=== PATIENT | female | born 1980 | race Two or more races ===

== ENCOUNTER → 2016-10-27 | Outpatient (CLI) | payer OTHER ==
[~2016-10-27] MED LIST: NO MEDICATIONS; PERCOCET5/325 PO
--- NOTE | ~2016-10-27 | US136 ---
[facility] A Service of [facility] & [facility] RADIOLOGY TEXT RESULTS PATIENT: ANTONETTE SWARTZ LOCATION: [facility] : [birth year] UNIT #: [id number] AGE: [address]: Radha Salazar MD SEX: F ORDER DR: [id number] [facility] [address] [place], [place] [address] [id number] O MR#: [id number] Acc #: [id number] NAME: ANTONETTE SWARTZ : 1980 SEX: F STUDY DATE/TIME: 10/27/2016 13:18 UNIT: [facility] ROOM: STUDY DESCRIPTION: US U/L Ext Art Study Ltd Bilat Attending Physician: Josh Salazar M.D. Referring Physician: Josh Salazar M.D. Ordering Physician: Josh Salazar M.D. Primary Care Physician: No Primary Care Physician MEDICAL IMAGING REPORT This report is preliminary unless electronic signature is present EXAM Bilateral ankle-brachial indices. INDICATION Pain and weakness for 2 years. Patient has right drop foot and is apparently to undergo surgery for this. TECHNIQUE Sequential pressures were obtained through both lower extremities and pulse volume recordings were generated. FINDINGS The ankle-brachial indices on the left are normal measuring 1.06 at the posterior tibial artery and 1.03 at the dorsalis pedis artery. However, the ankle-brachial index of the dorsalis pedis artery on the right is abnormal at 0.81, although it is normal in the posterior tibial artery at 1.02. The toe-brachial index on the left is normal at 0.92 and is on the lower end of normal on the right at 0.81. There is some dampening of the waveform within the pulse volume recording on the right. IMPRESSION 1. The ankle-brachial index of the right dorsalis pedis artery is abnormal at 0.81. Given that the rest of the patient's ankle-brachial indices are normal, this may be an artifactual finding, especially as the spine recording appears normal. However, the possibility of some isolated disease within the dorsalis pedis artery is certainly not excluded. CT angiography of the abdomen and pelvis with bilateral lower extremity runoff may allow for better characterization. 2. The patient's toe-brachial index on the right is diminished when compared to the contralateral side and the pulse volume recording is also diminished when compared to the contralateral side. I suspect this likely reflects some small vessel disease on the right, although [facility] A Service of [facility] & [facility] RADIOLOGY TEXT RESULTS PATIENT: ANTONETTE SWARTZ [id number] [birth year] UNIT #: [id number] AGE: [address]: Radha Salazar MD SEX: F ORDER DR: a component of inflow disease is not excluded given the abnormal RICK in the dorsalis pedis artery. Dictated by... Milagros Doan M.D. THIS IS AN ELECTRONICALLY VERIFIED REPORT Milagros Doan M.D. at 10/29/2016 12:57 PM AFF/margarita TD: 10/29/2016 09:39 JOB #: [id number] MEDICAL IMAGING REPORT Page 1 of 1 COPY
[2016-10-27 13:52] LABS: HEMATOCRIT 36.4 % (35.0-45.0); MEAN CELL VOLUME 89.7 FL (83-96); MEAN CORPUSCULAR HEMOGLOBIN 29.5 PG (28-34); MEAN CORPUSCULAR HGB CONC 32.9 g/dL (30-36); RED BLOOD COUNT 4.06 X10e (3.90-5.30); RED CELL DISTRIBUTION WIDTH 12.9 % (11.0-15.5); WHITE BLOOD COUNT 5.3 X10e3 (4.0-10.5)
[2016-10-27 14:20] LABS: BUN/CREATININE RATIO 15.71; CALCIUM SERUM 9.3 mg/dL (8.4-10.2); CREATININE SERUM 0.7 mg/dL (0.6-1.4); GLOM FILT RATE Estimated 112.3 mL/min (>60); POTASSIUM 3.9 mmol/L (3.5-5.1)
== END | disposition home or self-care (01) ==
LOC: CAMB 11:53
PROVIDERS: Orthopaedic Surgery
DX: Z01.818 Encounter for other preprocedural examination (principal); M21.6X1 Other acquired deformities of right foot; M21.371 Foot drop, right foot
CPT/HCPCS: 36415; 80048; 85027; 93922

== ENCOUNTER 2016-11-10 07:58 | Inpatient (IN) | payer OTHER ==
--- NOTE | ~2016-11-10 | DS ---
Unit #: [id number] #: [id number] Patient: ANTONETTE PEREZ [id number] [address] [place], [place] [address] [id number] I MR#: [id number] NAME: ANTONETTE PEREZ ROOM: [facility] Age: 36 Sex: F Admission Date: 11/10/2016 : 1980 Discharge Date: 11/12/2016 Attending Physician: Josh Salazar M.D. Primary Care Physician: No Primary Care Physician DISCHARGE SUMMARY CHIEF COMPLAINT Right foot deformity and pain. HISTORY OF PRESENT ILLNESS Patient is a 36-year-old female from [place], who has a right foot equinus deformity since childhood. The patient has had no treatment. She has a 45-degree equinus contracture and walks on the ball of her foot. She is, therefore, to undergo surgical correction of this unbraceable deformity. DESCRIPTION OF HOSPITAL COURSE The patient was taken to the operating room on the date of admission, where she underwent open right Achilles tendon lengthening close to her ankle capsule release, transfer of the posterior tibial tendon through the interosseous membrane to the dorsum of the mid-foot. She also underwent Santamaria' procedure and elevating first metatarsal osteotomy. She had a stable postoperative course. 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 She was seen by Physical Therapy and instructed on how to remain nonweight-bearing on her affected side. Dressing was changed on the 2nd postoperative day. She remained afebrile with stable vital signs. She was ready for discharge on the 2nd postoperative day. FINAL DIAGNOSES 1. Right ankle equinus contracture. 2. Right cavus deformity. 3. Right foot drop. DISPOSITION AND RECOMMENDATIONS The patient is discharged home, she will get the dressing clean, dry and intact. She will put it in elevation, she will not weight-bear on the extremity for 6-weeks. DISCHARGE MEDICATIONS Percocet 5/325 one or two p.o. q.4-6 hours p.r.n. pain, dispense 50. Follow-up in my office in 10-14 days for dressing change, stitch removal, and application of a cast. Dictated by.Toña Salazar M.D. [facility]/jt Unit #: [id number] #: [id number] Patient: ANTONETTE PEREZ TD: 11/12/2016 19:43 JOB #: [id number] DISCHARGE SUMMARY Page 1 of 1 X Radha Salazar MD DISCHARGE SUMMARY
--- NOTE | ~2016-11-10 | OR ---
Unit #: [id number] #: [id number] Patient: ANTONETTE SWARTZ [id number] [address] [place], [place] [address] [id number] I MR#: [id number] NAME: ANTONETTE SWARTZ ROOM: 453 Date of Procedure: 11/10/2016 Admission Date: 11/10/2016 Surgeon: Josh Salazar M.D. : 1980 Attending Physician: Josh Salazar M.D. Primary Care Physician: Primary Care Physician No OPERATIVE REPORT PREOPERATIVE DIAGNOSES 1. Severe right ankle equinus. 2. Right foot drop. 3. Right cavus foot. POSTOPERATIVE DIAGNOSES 1. Severe right ankle equinus. 2. Right foot drop. 3. Right cavus foot. PROCEDURES PERFORMED 1. Open right Achilles tendon lengthening and posterior ankle capsular release (68567). 2. Right posterior tibial tendon transfer through interosseous membrane to dorsal midfoot (08401). 3. Right flexor digitorum longus tendon transfer to navicular (30888). 4. Right Santamaria procedure with transfer of extensor hallucis longus tendon to first metatarsal neck and hallux interphalangeal joint fusion (82633). 5. Right second, third, fourth, and fifth toe flexor tenotomies (01172 x4). 6. A right first metatarsal base elevating osteotomy (91392). 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 ANESTHESIA Popliteal saphenous block and general. 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 She walks on the ball of the foot and cannot wear a normal shoe. She has not had any surgery. She does not wear a brace. She has had essentially no treatment. Due to the marked deformity of her foot, we have elected to proceed with Achilles lengthening as well as posterior tibial tendon transfer to allow some dorsiflexion in an attempt to produce a plantigrade foot. DESCRIPTION OF PROCEDURE The patient was taken to the operating room following the right popliteal saphenous block. She was placed in a supine position. General anesthetic was induced. The right leg was then identified as the correct operative Unit #: [id number] #: [id number] Patient: ANTONETTE SWARTZ extremity during the time-out procedure. The IV antibiotic protocol was followed. The right leg was then prepped and draped in the usual sterile fashion. An 8 cm medial longitudinal incision was made along the Achilles tendon. Subcutaneous tissue was divided. The Achilles paratenon was opened. The Achilles tendon was exposed with meticulous dissection. A #15 knife blade was then used to lengthen the Achilles tendon in a Z-fashion cutting the tendon in a coronal plane. The deep muscle fascia was then opened and the mechanical door repairer ankle capsule was released with tenotomy scissors to ensure that there was no restriction to ankle dorsiflexion. Ankle dorsiflexion to 0 degrees was barely achieved. The Achilles tendon was then repaired under normal tension with a running 2-0 FiberWire Krackow stitch. A medial longitudinal incision was then made over the posterior tibial tendon insertion. The posterior tibial tendon sheath was opened. The tendon was released from the navicular and tagged with 2-0 Vicryl. The previously placed Achilles incision was then utilized in its proximal extent to open the deep muscle fascia just posterior to the tibia. The posterior tibial musculotendinous junction was identified and the free end of the posterior tibial tendon was pulled into this wound. A 6 cm anterior longitudinal incision was then made over the distal tibia 8 cm proximal to the ankle joint. The deep muscle fascia was opened. The contents of the extensor compartment were retracted and the interosseous membrane was identified. The interosseous membrane was opened for a distance of 3 cm. The suture retriever was then used to pass the free end of the posterior tibial tendon from posterior to anterior through the interosseous membrane. The tendon was then passed through a vertical slit in the anterior tibial tendon from posterior to anterior. There was residual forefoot cavus with depression of the first metatarsal, therefore it was decided to proceed with a Santamaria procedure and elevating first metatarsal osteotomy. A dorsal longitudinal incision was made along the entire first metatarsal crossing the first metatarsophalangeal joint and crossing the interphalangeal joint in a transverse fashion. The extensor hallucis longus tendon was retracted. The proximal first metatarsal shaft was exposed with subperiosteal dissection. Baby Hohmann retractors were placed. The microsagittal saw was used to fashion a 3 mm dorsal closing wedge osteotomy 1.5 cm proximal to the first tarsometatarsal joint. The wedge of bone was removed. The osteotomy was closed and then fixated with a tension band technique. Transverse hole was made in the dorsal shaft of the first metatarsals distal to the osteotomy, and a 22-gauge wire was placed through this hole. The OrthoHelix 4.0 mm diameter screw was placed as a post from dorsal to plantar in the proximal fragment of the first metatarsal. The wire was then wrapped around the screw head in a [id number] fashion and then tightened with a large needle short haul driver. The wire was then cut and bent to lay close to the bone. Excellent reduction of the first metatarsal osteotomy and achievement of her rectus forefoot was achieved. The extensor hallucis longus tendon was then released sharply from the distal phalanx and then passed through a 4 mm diameter drill hole in the first metatarsal neck. The tendon was pulled tightly and then sutured to itself with multiple 2-0 FiberWire sutures. The microsagittal saw was used to remove the articular cartilage from both sides of the hallux interphalangeal joint. The joint was then fixated with a 4.0 mm diameter OrthoHelix screw placed from distal to proximal Unit #: [id number] #: [id number] Patient: ANTONETTE SWARTZ across the joint. Because the remaining toes were flexed, flexor tenotomies were then performed in the second through fifth toes. The plantar longitudinal incisions were made at the proximal phalanges of the second, third, fourth, and fifth toes. The flexor tendon sheaths were opened and both the flexor digitorum longus and flexor digitorum superficialis tendons were cut transversely with scissors. Improvement of toe position was achieved. The middle cuneiform was then exposed subperiosteally. Care was taken to preserve the neurovascular bundle dorsally under C-arm fluoroscopic control. A 4.5 mm diameter OrthoHelix suture anchor was placed in the center of the middle cuneiform. The two attached #2 FiberWire sutures were then used to repair the free end of the posterior tibial tendon down to the middle cuneiform. The free end of the posterior tibial tendon was passed from the anterior incision subcutaneously into the dorsal midfoot incision. The tendon was then repaired down to the middle cuneiform with a modified Sinha technique. Excellent repair of the tendon was achieved. To substitute for the transferred posterior tibial tendon, the flexor digitorum longus tendon was identified deep to the posterior tibial tendon sheath and it was released at the Knot of Tommie. An OrthoHelix 4.5 mm diameter suture anchor was placed in the navicular under mini C-arm fluoroscopic control. The two attached #2 FiberWire sutures were used to repair the free end of the flexor digitorum longus tendon to the navicular using a modified Sinha technique. All wounds were copiously irrigated. The posterior tibial tendon was repaired to the split in the anterior tibial tendon with 2-0 FiberWire [id number] sutures. The deep tissues were closed with 2-0 Vicryl. Subcutaneous tissue was closed with 3-0 Vicryl and the skin was closed with 3-0 nylon horizontal mattress sutures. Xeroform gauze, dressing, sponges, Webril, and a posterior fiberglass splint were applied. The patient was then transported to the recovery room in stable condition. ESTIMATED BLOOD LOSS 100 mL. COMPLICATIONS None. SPECIMENS None. TOURNIQUET TIME 2 hours 15 minutes. Dictated byDarryn Salazar M.D. RT/liaml TD: 11/11/2016 02:04 JOB #: [id number] Unit #: [id number] #: [id number] Patient: ANTONETTE SWARTZ OPERATIVE REPORT Page 1 of 1 X Radha Salazar MD X PROCEDURE OPERATIVE NOTE
--- NOTE | ~2016-11-10 | HP ---
Unit #: [id number] #: [id number] Patient: ANTONETTE SWARTZ [id number] [address] [place], [place] [address] [id number] I MR#: [id number] NAME: ANTONETTE SWARTZ ROOM: 56199 Age: Sex: F Admission Date: 11/10/2016 : 1980 Attending Physician: Josh Salazar M.D. HISTORY AND PHYSICAL DATE OF ANTICIPATED ADMISSION/PROCEDURE November 10, 2016 CHIEF COMPLAINT Right footdrop and equinus contracture. HISTORY OF PRESENT ILLNESS The patient is a 36-year-old female who is and speaks Swahili. 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 She has had a significant right foot deformity since childhood. She has not received any treatment. She does not wear a brace. The patient states the problem causes pain along her posterior leg, as well as the lateral aspect of her ankle. She does not wear any braces or special shoes. She denies any numbness. She denies any significant other medical history. Examination demonstrates a severe equinus contracture with right footdrop and absent anterior tibial tendon function. She is therefore admitted for open Achilles tendon lengthening with posterior ankle capsular release, right posterior tibial tendon transfer to the dorsal midfoot, and flexor tendon releases to the toes. PAST MEDICAL HISTORY Unremarkable. PAST SURGICAL HISTORY None. MEDICATIONS None. ALLERGIES Aspirin. SOCIAL HISTORY The patient is a nonsmoker and nondrinker. She denies the use of IV drugs. FAMILY HISTORY Unremarkable. REVIEW OF SYSTEMS Unremarkable. PHYSICAL EXAMINATION VITAL SIGNS: Height 5 feet 1, weight 98 pounds. GENERAL: This is a thin, female in no acute distress. Unit #: [id number] #: [id number] Patient: ANTONETTE SWARTZ HEENT: Pharynx is clear. NECK: Supple without masses. HEART: Regular sinus rhythm without murmurs or gallops. LUNGS: Clear. ABDOMEN: Soft and nontender without masses or organomegaly. EXTREMITIES: Evaluation of the right foot demonstrates severe equinovarus deformity. Her heel does not touch the ground. Her equinus contracture is 45 degrees. Subtalar motion is limited to 30 degrees of varus to -20 degrees of valgus. First MTP joint motion is within normal limits. She has very limited active range of motion with dorsiflexion or plantar flexion. The patient is able to extend her toes with her extensor digitorum longus and extensor hallices longus tendons. She has strong inversion, eversion, and plantar flexion. Sensation is normal. Pulses are not palpated. DIAGNOSTIC STUDIES IMAGING: Standing x-rays of the right foot and ankle demonstrate a marked equinus contracture without significant other bony abnormalities. No fractures are seen. Ankle-brachial indices were obtained on October 27, 2016, and these show a right dorsalis pedis RICK of 0.81 and a posterior tibial RICK of 1.02 indicating adequate blood supply for healing. ADMITTING DIAGNOSES 1. Right footdrop. 2. Right equinus contracture. PLAN The patient is admitted for open right Achilles tendon lengthening and posterior ankle capsular release, as well as transfer of the posterior tibial tendon to the dorsal midfoot and flexor tendon releases of toes one through five. This procedure was described in detail along with the risks of bleeding, infection, nerve damage, need for further surgery in the future, prolonged recovery time, deep venous thrombosis, pulmonary embolism, and anesthetic complications. The patient understands that she will be nonweightbearing for six weeks postoperatively in a cast. I also advised her there was no guarantee of a normal foot or normal motor strength. She understands and agrees to proceed. Dictated by Jessica Riggs/andrez TD: 11/09/2016 21:53 JOB #: [id number] HISTORY AND PHYSICAL Page 1 of 1 X Radha Salazar MD X HISTORY AND PHYSICAL
[~2016-11-10 07:58] MED LIST changes: -PERCOCET5/325 PO
[2016-11-11 03:23] LABS: HEMOGLOBIN 11.1 gm/dL (12.0-16.0)
[2016-11-12] MEDS ORDERED: PERCOCET5/325 PO (11:31)
== END 2016-11-12 13:57 | disposition home or self-care (01) | DRG 494 ==
LOC: CSUR 07:58 → CPACUOF 14:00 → C4B 15:45
PROVIDERS: Orthopaedic Surgery
PROC: 0QBN0ZZ Excision of Right Metatarsal, Open Approach (ICD-10-PCS; 2016-11-10)
PROC: 0LNV0ZZ Release Right Foot Tendon, Open Approach (ICD-10-PCS; 2016-11-10)
PROC: 0SGM04Z Fusion of Right Metatarsal-Phalangeal Joint with Internal Fixation Device, Open Approach (ICD-10-PCS; 2016-11-10)
PROC: 0LXS0ZZ Transfer Right Ankle Tendon, Open Approach (ICD-10-PCS; 2016-11-10)
PROC: 0L8N0ZZ Division of Right Lower Leg Tendon, Open Approach (ICD-10-PCS; principal; 2016-11-10 10:30)
PROC: 0SNF0ZZ Release Right Ankle Joint, Open Approach (ICD-10-PCS; 2016-11-10 10:30)
DX: M21.6X1 Other acquired deformities of right foot (principal); Z88.4 Allergy status to anesthetic agent; M21.371 Foot drop, right foot; M21.541 Acquired clubfoot, right foot
CPT/HCPCS: 84703; 85014; 85018; 94760; 97116; 97162; 97530; C1713; J0171; J0690; J1100; J1885; J2175; J2250; J2270; J2550; J2765; J3010

== ENCOUNTER → 2017-03-18 | Outpatient (CLI) | payer OTHER ==
[~2017-03-18] MED LIST changes: +PERCOCET5/325 PO
--- NOTE | ~2017-03-18 | CT95 ---
[facility] A Service of [facility] & [facility] RADIOLOGY TEXT RESULTS PATIENT: ANTONETTE PEREZ LOCATION: [facility] : [birth year] UNIT #: [id number] AGE: [address]: Radha Salazar MD SEX: F ORDER DR: [id number] [facility] [address] [place], [place] [address] [id number] O MR#: [id number] Acc #: [id number] NAME: ANTONETTE PEREZ : 1980 SEX: F STUDY DATE/TIME: 03/18/2017 13:58 UNIT: [facility] ROOM: STUDY DESCRIPTION: CT Lower Ext Rt Wo Cont Attending Physician: Josh Salazar M.D. Referring Physician: Josh Salazar M.D. Ordering Physician: Josh Salazar M.D. Primary Care Physician: Primary Care Physician No MEDICAL IMAGING REPORT This report is preliminary unless electronic signature is present EXAM CT right ankle and foot with metal reduction factors and coronal and sagittal reconstructions, 03/18/2017 COMPARISON Right ankle radiographs, 09/03/2016; right foot radiographs, 12/23/2016, 01/21/2017, 03/03/2017, and right ankle radiographs 03/03/2017. Operative report [facility], 11/10/2016 (open right ankle Achilles tendon lengthening and posterior ankle capsule release, right PTT transfer for interosseous membrane to dorsal midfoot), right FDL tendon transfer to navicular, right Santamaria procedure with transfer of VHL to first metatarsal neck and hallux interphalangeal joint fusion, right second, third, fourth and fifth toe flexor tenotomies, right first metatarsal base elevating osteotomy. HISTORY Order states right ankle equinus and ankle pain. History sheet states right ankle pain diffusely since 11/10/2016 surgery. Intermittent lateral side swelling. TECHNIQUE This CT exam was performed with one or more of the following radiation dose reduction techniques: automatic exposure control, adjustment of mA and/or kV according to patient size, and iterative reconstruction. FINDINGS The exam was initially dictated on 03/19/2017. That dictation was incomplete and the exam is therefore redictated on 03/24/2017. I apologize for the delay. The tibiotalar joint shows no effusion, fracture, or calcified loose body. [facility] A Service of [facility] RADIOLOGY TEXT RESULTS PATIENT: ANTONETTE PEREZ LOCATION: [facility] : [birth year] UNIT #: [id number] AGE: [address]: Radha Salazar MD SEX: F ORDER DR: Postoperative morphology of the Achilles tendon lengthening has an expected appearance. The posterior tibial tendon transfer has an unremarkable appearance to its dorsal midfoot insertion. The FDL transfer to the navicular has an unremarkable appearance. The osteotomy of the proximal first metatarsal has not completely healed. Peroneal tendons are unremarkable. There is no evidence of fracture, hardware loosening, or hardware malalignment. There is no CT evidence of abscess or osteomyelitis. No high grade arthritic changes are noted. No high grade muscle atrophy is noted other the abductor digiti minimi muscle which raises the possibility of sequela of Harry's neuropathy. IMPRESSION 1. Comparison is made to the October 2016 operative report as well as prior radiographs detailed above. 2. Complex ankle/foot reconstructive surgical changes with no evidence of hardware fracture, failure, or loosening. 3. Expected appearance of the described tendon transfers. 4. No evidence of abscess or osteomyelitis. 5. No fracture or arthritic change. 6. Achilles tendon lengthening with an expected appearance. STAT * RESULT Dictated by... Wendy Cummings M.D. THIS IS AN ELECTRONICALLY VERIFIED REPORT Wendy Cummings M.D. at 03/25/2017 8:16 AM Romel TD: 03/24/2017 12:06 JOB #: [id number] MEDICAL IMAGING REPORT Page 1 of 1 COPY
== END | disposition home or self-care (01) ==
LOC: CCAT 13:00
DX: M25.571 Pain in right ankle and joints of right foot (principal); Z98.890 Other specified postprocedural states
CPT/HCPCS: 73700